=== PATIENT | male | born 1990 | race Asian ===

== ENCOUNTER 2020-09-23 10:59 | Emergency (ER) | payer OTHER ==
--- NOTE | 2020-09-23 12:05 | EDPHYS ---
Physician Documentation [facility] Name: Vineet Mari Age: 30 yrs Sex: Male : 1990 Arrival Date: 09/23/2020 Time: 11:03 Bed 13 Private MD: ED Physician Jabari Lester HPI: 09/23 11:56 This 30 yrs old Male presents to ER via Wheelchair with complaints of Knee Injury.cp 11:56 The patient presents with pain, that is acute, tenderness, instability. The complaints cp affect the medial aspect of left knee and left knee. Context: Patient reports he was performing pull-ups 2 days ago and when fell to ground, felt left knee buckle. Since has felt like left knee is unstable and wants to give out. Associated signs and symptoms: Pertinent positives: weakness, Pertinent negatives calf tenderness, numbness. Treatment prior to arrival includes: knee sleeve. Historical: - Allergies: 11:07 No Known Allergies; sv - Immunization history:: Adult Immunizations up to date. - Social history:: Smoking status: Patient denies any tobacco usage or history of. ROS: 11:58 Constitutional: Negative for body aches, chills, fever, poor PO intake. cp 11:58 Cardiovascular: Negative for chest pain. cp 11:58 Respiratory: Negative for cough, shortness of breath, wheezing. 11:58 Back: Negative for pain at rest, pain with movement. 11:58 MS/extremity: Positive for pain, tenderness, of the medial aspect of left knee and anterior aspect left knee, Negative for decreased range of motion, paresthesias. 11:58 Skin: Negative for rash. 11:58 All other systems are negative. Exam: 12:00 Constitutional: The patient appears in no acute distress, alert, awake, non-toxic, well cp developed, well nourished. 12:00 Chest/axilla: Inspection: normal. cp 12:00 Cardiovascular: Rate: normal. 12:00 Respiratory: the patient does not display signs of respiratory distress, Respirations: normal. 12:00 Musculoskeletal/extremity: Extremities: grossly normal except: noted in the medial aspect of left knee: pain, swelling, tenderness, laxity with valgus stress, ROM: limited passive range of motion due to pain, in the left knee, Perfusion: the extremity is normally perfused throughout, Sensation intact. Weight bearing: able to fully bear weight. Vital Signs: 11:07 BP 117 / 81; Pulse 90; Resp 16; Temp 97; Pulse Ox 100% ; Weight 95.25 kg; Height 5 ft. sv 11 in. (180.34 cm); 11:07 Body Mass Index 29.29 (95.25 kg, 180.34 cm) sv MDM: 11:53 Patient medically screened. cp 12:00 Differential diagnosis: dislocation, closed fracture, contusion, tendonitis, ligament cp injury. 12:04 Data reviewed: vital signs, nurses notes, radiologic studies, plain films. cp 12:04 Test interpretation: by ED physician or midlevel provider: xrays of left knee negative cp for fracture. Counseling: I had a detailed discussion with the patient and/or guardian regarding: the historical points, exam findings, and any diagnostic results supporting the discharge/admit diagnosis, radiology results, the need for outpatient follow up, a orthopedic surgeon, to return to the emergency department if symptoms worsen or persist or if there are any questions or concerns that arise at home. 09/23 11:10 Order name: Knee Left 3 View XRAY; Complete Time: 12:17 sv 09/23 12:17 Interpretation: Report reviewed. cp 09/23 12:05 Order name: Crutches; Complete Time: 12:12 cp Administered Medications: No medications were administered Disposition: 12:25 Chart complete. cp 09/24 07:53 Co-signature as Attending Physician, Jabari Lester MD I agree with the assessment and kdr plan of care. Disposition: 09/23/20 12:04 Discharged to Home. Impression: Sprain of medial collateral ligament of left knee. - Condition is Stable. - Discharge Instructions: Knee Sprain. - Prescriptions for Ibuprofen 800 mg Oral Tablet - take 1 tablet by ORAL route every 8 hours As needed take with food; 30 tablet. - Medication Reconciliation Form, Thank You Letter, Antibiotic Education, Prescription Opioid Use, Work release form form. - Follow up: Magdaleno Collins MD; When: 2 - 3 days; Reason: Recheck today's complaints. - Problem is new. - Symptoms are unchanged. Signatures: Dispatcher [employer] Ana Vargas RN RN sv Rittger, Kevin, MD MD [facility] Page, Dada, PA PA cp Keyur, Lynsay, RN RN ll1 Corrections: (The following items were deleted from the chart) 09/23 12:24 12:04 09/23/2020 12:04 Discharged to Home. Impression: Sprain of medial collateral ll1 ligament of left knee. Condition is Stable. Forms are Medication Reconciliation Form, Thank You Letter, Antibiotic Education, Prescription Opioid Use. Follow up: Magdaleno Collins; When: 2 - 3 days; Reason: Recheck today's complaints. Problem is new. Symptoms are unchanged. cp
--- NOTE | 2020-09-23 12:05 | ER ---
Nurse's Notes [facility] Name: Vineet Mari Age: 30 yrs Sex: Male : 1990 Arrival Date: 09/23/2020 Time: 11:03 Bed 13 Private MD: Diagnosis: Sprain of medial collateral ligament of left knee Presentation: 09/23 11:06 Chief complaint: Patient states: left knee injury at the gym on Monday and then today sv stepped wrong and felt another shift in his knee. Coronavirus screen: Client denies travel out of the [place] in the last 14 days. At this time, the client does not indicate any symptoms associated with coronavirus-19. Ebola Screen: No symptoms or risks identified at this time. Risk Assessment: Do you want to hurt yourself or someone else? Patient reports no desire to harm self or others. Onset of symptoms was September 23, 2020. 11:06 Method Of Arrival: Wheelchair sv 11:06 Acuity: JOSELUIS 4 sv 11:07 Initial Sepsis Screen: Does the patient meet any 2 criteria? No. Patient's initial sv sepsis screen is negative. Does the patient have a suspected source of infection? No. Patient's initial sepsis screen is negative. Triage Assessment: 11:06 General: Appears in no apparent distress. uncomfortable, Behavior is calm, cooperative, sv appropriate for age. Pain: Complains of pain in left knee. Neuro: Level of Consciousness is awake, alert, obeys commands, Oriented to person, place, time, situation. Respiratory: Respiratory effort is even, unlabored. Historical: - Allergies: 11:07 No Known Allergies; sv - Immunization history:: Adult Immunizations up to date. - Social history:: Smoking status: Patient denies any tobacco usage or history of. Screenin:53 Abuse screen: Denies threats or abuse. Nutritional screening: No deficits noted. ll1 Tuberculosis screening: No symptoms or risk factors identified. Fall Risk Ambulatory Aid- Crutches/Cane/Walker (15 pts). Gait- Impaired (20 pts.). Total Albrecht Fall Scale indicates Low Risk Score (25-44 pts). Fall prevention measures have been instituted. Side Rails Up X 2 Placed close to Nursing Station Frequent Obs/Assesments occuring Family Present and informed to notify staff if they need to leave bedside As available Patient and Family Educated on Fall Prevention Program and strategies. Assessment: 11:10 Reassessment: Received VO from Dada VICTORIA to input xray left knee. sv 11:52 General: Appears in no apparent distress. Behavior is calm, cooperative, appropriate ll1 for age. Musculoskeletal: Circulation, motion, and sensation intact. Capillary refill < 3 seconds, Range of motion: intact in all extremities, Tenderness present in left knee Reports pain in left knee. Injury Description: Bruise. Vital Signs: 11:07 BP 117 / 81; Pulse 90; Resp 16; Temp 97; Pulse Ox 100% ; Weight 95.25 kg; Height 5 ft. sv 11 in. (180.34 cm); 11:07 Body Mass Index 29.29 (95.25 kg, 180.34 cm) sv ED Course: 11:03 Patient arrived in ED. rg4 11:07 Triage completed. sv 11:07 Arm band placed on. sv 11:50 Tracy Baer RN is Primary Nurse. ll1 11:51 Dada Osorio PA is PHCP. cp 11:51 Jabari Lester MD is Attending Physician. cp 11:53 Patient has correct armband on for positive identification. Bed in low position. Call ll1 light in reach. Side rails up X 1. Cardiac monitoring not applicable on this patient. 11:56 Knee Left 3 View XRAY In Process Unspecified. EDMS 12:04 Magdaleno Collins MD is Referral Physician. cp 12:23 No provider procedures requiring assistance completed. Patient did not have IV access ll1 during this emergency room visit. Administered Medications: No medications were administered Outcome: 12:04 Discharge ordered by . cp 12:24 Discharged to home ambulatory. ll1 12:24 Condition: stable 12:24 Discharge instructions given to patient, Instructed on discharge instructions, follow up and referral plans. medication usage, crutch walking, Demonstrated understanding of instructions, follow-up care, medications, crutch walking, Prescriptions given X 1. 12:24 Patient left the ED. ll1 Signatures: Dispatcher [employer] EDMS Ana Saavedra RN RN sv Page, Corey, PA PA cp Garcia, Rubi rg4 Tracy Baer RN RN ll1
--- NOTE | 2020-09-23 12:11 | RAD REPORT ---
EXAM DESCRIPTION: RAD - Knee Left 3 View - 09/23/2020 11:56 am CLINICAL HISTORY: PAIN COMPARISON: No comparisons FINDINGS: No fracture, dislocation or periosteal reaction.Small joint effusion is present. No joint space narrowing. No soft tissue abnormality. IMPRESSION: Small left knee joint effusion with no acute bone finding. Clinical concerns for internal derangement or occult bony injury could be further assessed with MR im aging.
[2020-09-23 16:53] VITALS: BP 117/81; TEMP 97; O2SAT 100
== END 2020-09-23 12:24 | disposition home or self-care (01) ==
LOC: ER 10:59
DX: S83.412A Sprain of medial collateral ligament of left knee, initial encounter (principal); W19.XXXA Unspecified fall, initial encounter; Y93.B2 Activity, push-ups, pull-ups, sit-ups; Y92.9 Unspecified place or not applicable
CPT/HCPCS: 99283